=== PATIENT | male | born 1940 | race Caucasian/White ===

== ENCOUNTER 2019-09-13 07:46 | Inpatient (IN) | payer MEDICARE ==
[~2019-09-13] VITALS: Ht 170.2 cm; Wt 77.3 kg
[2019-09-13 08:20] LABS: BASOPHILS % 0.4 % (0.0-2.0); EOSINOPHILS % 1.2 % (0.0-5.0); HEMATOCRIT. 44.1 % (42.0-52.0); HEMOGLOBIN. 15.3 g/dL (14.0-18.0); LYMPHOCYTES % 42.5 % (20.0-50.0); MEAN CORPUSCULAR HEMOGLOBIN 33.3 pg (28.0-32.0); MEAN CORPUSCULAR VOLUME 96.3 fL (80.0-94.0); MEAN PLATELET VOLUME 8.4 fl (7.4-10.4); MONOCYTES % 6.4 % (2.0-8.0); NEUTROPHILS % 49.5 % (40.0-76.0); PLATELET 163 x1000/uL (130-400); RED BLOOD CELL COUNT 4.59 mill/uL (4.7-6.1); RED CELL DISTRIBUTION WIDTH 13.6 % (11.6-14.6)
[2019-09-13 08:28] LABS: CHLORIDE 104 mEq/L (98-107)
[2019-09-13] MEDS ORDERED: ASPIRIN 325MG EC TABLET PO ONE (08:30)
[2019-09-13 08:33] LABS: ETHANOL BLOOD < 10 mg/dL
[2019-09-13 08:35] LABS: LDL CHOLESTEROL 115 mg/dL (5-100)
[2019-09-13] MEDS ORDERED: ONDANSETRON HCL 4MG/2ML INJ IV PRN (09:45)
[2019-09-13] MEDS ORDERED: ACETAMINOPHEN 325MG TABLET PO PRN (09:45)
[2019-09-13] MEDS ORDERED: IOHEXOL-350 100 ML BOTTLE ONE (10:04)
[2019-09-13 11:36] LABS: CLARITY URINE CLEAR (CLEAR); COLOR URINE YELLOW (YELLOW); KETONES URINE NEGATIVE (NEGATIVE); LEUKOCYTE ESTERASE URINE NEGATIVE (NEGATIVE); NITRITE URINE NEGATIVE (NEGATIVE); OCCULT BLOOD URINE NEGATIVE (NEGATIVE); PROTEIN URINE NEGATIVE (NEGATIVE); SPECIFIC GRAVITY URINE 1.028 (1.005-1.030); UROBILINOGEN URINE 0.2 E.U./dL (0.2-1.0)
[2019-09-13 11:47] LABS: *AMPHETAMINES SCREEN URINE NEGATIVE (NEGATIVE); CANNABINOID URINE SCREEN NEGATIVE (NEGATIVE); OPIATES URINE SCREEN NEGATIVE (NEGATIVE); PHENCYCLIDINE URINE SCREEN NEGATIVE (NEGATIVE)
[2019-09-13 11:48] LABS: *BARBITURATES SCREEN URINE NEGATIVE (NEGATIVE); *BENZODIAZEPINES SCREEN URINE NEGATIVE (NEGATIVE); *COCAINE SCREEN URINE NEGATIVE (NEGATIVE); METHADONE URINE SCREEN NEGATIVE (NEGATIVE)
[2019-09-13 13:12] VITALS: BP 163/98
[2019-09-13 13:22] VITALS: BP 163/98
[2019-09-13 14:00] VITALS: BP 144/91
[2019-09-13] MEDS: ENOXAPARIN 80MG/0.8ML SYR SUBCUT SCH ×3 (14:00→23:50)
[2019-09-13] MEDS ORDERED: ASPI-1497 PO (14:08)
[2019-09-13] MEDS ORDERED: HYDR25TA PO (14:08)
[2019-09-13 16:00] VITALS: BP 140/86
[2019-09-13 20:00] VITALS: BP 147/83
[2019-09-13] MEDS: ATORVASTATIN CALCIUM 40MG TABLET PO SCH ×2 (21:00→21:47)
[2019-09-13 22:00] VITALS: BP 134/78
[2019-09-14] VITALS (11 sets, daily range): BP systolic 105–150; BP diastolic 56–94
[2019-09-14 07:14] LABS: BASOPHILS % 0.6 % (0.0-2.0); EOSINOPHILS % 1.4 % (0.0-5.0); HEMATOCRIT. 41.1 % (42.0-52.0); HEMOGLOBIN. 14.1 g/dL (14.0-18.0); LYMPHOCYTES % 33.7 % (20.0-50.0); MEAN CORPUSCULAR HEMOGLOBIN 33.2 pg (28.0-32.0); MEAN CORPUSCULAR VOLUME 96.5 fL (80.0-94.0); MONOCYTES % 8.1 % (2.0-8.0); NEUTROPHILS % 56.2 % (40.0-76.0); PLATELET 157 x1000/uL (130-400); RED BLOOD CELL COUNT 4.26 mill/uL (4.7-6.1)
[2019-09-14] MEDS: CLOPIDOGREL 75MG TABLET PO SCH (08:24)
[2019-09-14] MEDS: ENOXAPARIN 80MG/0.8ML SYR SUBCUT SCH ×3 (08:24→21:30)
[2019-09-14] MEDS ORDERED: HYDROCHLOROTHIAZIDE 12.5MG CAPSULE PO SCH (15:00)
[2019-09-15] VITALS (9 sets, daily range): BP systolic 102–142; BP diastolic 53–100
[2019-09-15 07:27] LABS: BASOPHILS % 0.5 % (0.0-2.0); EOSINOPHILS % 1.8 % (0.0-5.0); HEMATOCRIT. 41.9 % (42.0-52.0); HEMOGLOBIN. 14.6 g/dL (14.0-18.0); LYMPHOCYTES % 30.9 % (20.0-50.0); MEAN CORPUSCULAR HEMOGLOBIN 33.5 pg (28.0-32.0); MEAN CORPUSCULAR VOLUME 96.1 fL (80.0-94.0); MEAN PLATELET VOLUME 8.8 fl (7.4-10.4); MONOCYTES % 8.2 % (2.0-8.0); NEUTROPHILS % 58.6 % (40.0-76.0); PLATELET 164 x1000/uL (130-400); RED BLOOD CELL COUNT 4.36 mill/uL (4.7-6.1); RED CELL DISTRIBUTION WIDTH 13.6 % (11.6-14.6)
[2019-09-15 07:38] LABS: CHLORIDE 107 mEq/L (98-107)
[2019-09-15 07:54] LABS: TOTAL IRON BINDING CAPACITY 282 ug/dL (250-450)
[2019-09-15 08:12] LABS: VITAMIN B12 SERUM 801 pg/mL (211-911)
[2019-09-15] MEDS: CLOPIDOGREL 75MG TABLET PO SCH (09:00)
[2019-09-15] MEDS: ENOXAPARIN 80MG/0.8ML SYR SUBCUT SCH (09:05)
[2019-09-15] MEDS ORDERED: APIX5TAB MT (14:16)
[2019-09-15] MEDS ORDERED: CHOL4PAC20 MT (14:16)
[2019-09-15] MEDS ORDERED: APIXABAN 5 MG TABLET PO SCH (15:00)
[2019-09-15] MEDS ORDERED: CHOLESTYRAMINE/SUCROSE 4G POWDER PACKET PO SCH (17:20)
== END 2019-09-15 15:42 | disposition home or self-care (01) | DRG 64 ==
LOC: ER 07:46 → 3WST 08:48 → EDBEDREQ 08:55 → EDBEDREQTM 08:55 → ENRESERV 12:18
PROVIDERS: ADMIT Internal Medicine; ATTEND Internal Medicine
DX: I63.9 Cerebral infarction, unspecified (principal); I50.33 Acute on chronic diastolic (congestive) heart failure; G90.8 Other disorders of autonomic nervous system; I48.91 Unspecified atrial fibrillation; E78.5 Hyperlipidemia, unspecified; I45.10 Unspecified right bundle-branch block; I11.0 Hypertensive heart disease with heart failure; R47.01 Aphasia; Z79.82 Long term (current) use of aspirin; Z85.46 Personal history of malignant neoplasm of prostate; Z92.3 Personal history of irradiation; Z88.8 Allergy status to other drugs, medicaments and biological substances
CPT/HCPCS: 36415; 70496; 70498; 70551; 71045; 80048; 80053; 80061; 80305; 80320; 81003; 82607; 82962; 83540; 83550; 83721; 83735; 84443; 84484; 85025; 93005; 93306; 93880; 97162; 99291; J1650; Q9967; G0480